=== PATIENT | female | born 1945 | race Caucasian/White ===

== ENCOUNTER 2018-09-11 20:28 | Inpatient (IN) ==
[2018-09-12] MEDS ORDERED: NITROGLYCERIN SL 0.4 MG/TAB TAB SL PRN (01:30)
[2018-09-12] MEDS ORDERED: POLYETHYLENE (MIRALAX) 17 GM PACK PO PRN (01:30)
[2018-09-12] MEDS ORDERED: ALUMINUM/MAGNESIUM SUSP 30 ML UDC PO PRN (01:30)
[2018-09-12] MEDS ORDERED: ONDANSETRON INJ 2 MG/ML 2 ML VIAL IV PRN (01:30)
[2018-09-12] MEDS ORDERED: ACETAMINOPHEN 325 MG TAB PO PRN (01:30)
[2018-09-12] MEDS ORDERED: MAGNESIUM HYDROXIDE SUSP 30 ML UDC PO PRN (01:30)
[2018-09-12] MEDS ORDERED: NSS + 20MEQ KCL 20 MEQ/1,000 ML BAG IV SCH (01:45)
[2018-09-12] MEDS ORDERED: PNEUMOCOCCAL ADMINISTRATION CHARGE ONE (01:45)
[2018-09-12] MEDS ORDERED: PNEUMOCOCCAL POLYSACCHARIDES 25 MCG/0.5 ML VIAL/SYR IM ONE (01:45)
[2018-09-12 01:57] LABS: Basophils # (auto) 0.01 K/uL (0-0.2); Basophils % (auto) 0.3 %; Eosinophils # (auto) 0.07 K/uL (0-0.5); Eosinophils % (auto) 1.8 %; Hematocrit (blood only) 40.8 % (37-47); Hemoglobin 14.5 g/dL (12.0-16.0); Immature Granulocytes # (auto) 0.01 K/uL (0.00-0.02); Immature Granulocytes % (auto) 0.3 %; Lymphocytes % (auto) 33.5 %; Mean Corpuscular Hgb Conc 35.5 g/dL (32-36); Mean Corpuscular Volume 85.9 fL (80-100); Mean Platelet Volume 9.8 fL (7.4-10.4); Monocytes % (auto) 20.6 %; Neutrophils # (auto) 1.69 K/uL (1.4-6.5); Neutrophils % (auto) 43.5 %; Platelet Count 161 K/uL (130-400); RDW Standard Deviation 41.4 fL (36.4-46.3); Red Blood Count 4.75 M/uL (4.2-5.4); White Blood Count 3.88 K/uL (4.8-10.8)
[2018-09-12 02:14] LABS: Albumin Level 3.3 gm/dl (3.4-5.0); BUN Creatinine Ratio 18.2 (10-20); Creatinine Clr Calc Pharmacy 55.3 ml/min; Est GFR (African American) 55.8; Est GFR (Non-African American) 48.2; Magnesium 2.2 mg/dl (1.8-2.4); Potassium 3.3 mmol/L (3.5-5.1)
[2018-09-12 02:19] LABS: Bilirubin,Total 0.3 mg/dl (0.2-1); Globulin 3.4 gm/dl (2.5-4.0); Total Protein 6.7 gm/dl (6.4-8.2); Troponin I 0.017 ng/ml (0-0.045)
--- NOTE | 2018-09-12 03:36 | History & Physical Report ---
Date of Service September 12, 2018 Assessment & Plan (1) Dysrhythmia: The patient will be admitted to telemetry for serial cardiac enzymes, serial EKG's, cardiac rhythm monitoring and a 2-D echocardiogram with Dopplers. Patient was noted to be in atrial fibrillation with controlled rate at [facility] ED. Review of EKG from there suggests junctional tachycardia. Early rhythm monitoring at [facility] suggests normal sinus rhythm with intermittent PACs and possible wandering pacemaker. Consult cardiology for their opinion. Do not think patient needs to be anticoagulated at this time. Present on Admission?: Yes (2) Influenza A: Given first dose of Tamiflu 30 mg p.o. in the ED at [facility]. Continue Tamiflu 30 mg p.o. twice daily for full 5-day course. Present on Admission?: Yes (3) Hypokalemia: Potassium 3.3 upon admission, likely contributing to the variability in her heart rate and rhythm. Place on NSS + KCl 20 mEq at 100 mils per hour. Repeat laboratories serially in a.m. Present on Admission?: Yes (4) Hypothyroidism: Continue levothyroxine 25 mcg p.o. daily. Check a TSH Present on Admission?: Yes (5) Morbid obesity with BMI of 50.0-59.9, adult: Present on Admission?: Yes (6) Venous insufficiency of both lower extremities: Hold Lasix. Rehydrate with IV fluids as noted above. Present on Admission?: Yes History of Present Illness Chief Complaint: The patient presented to the emergency department at [facility] with complaint of 3 days of generalized myalgias, coughing, generalized weakness and dizziness. Primary Care Provider: NO PCP The patient is a 72-year-old female with a past medical history of hypothyroidism, sepsis, arthritis, carpal tunnel syndrome, intermittent lower extremity edema, who presented to the emergency department at [facility], had testing done including influenza testing which was positive for influenza A, and was found to be in new onset atrial fibrillation with controlled rate. She was transferred to [facility] for further assessment and treatment of the atrial fibrillation. She was given Tamiflu 30 mg x1 dose in the ED there. Allergies Allergy/AdvReac Type Severity Reaction Status Date / Time cephalexin [From Keflex] Allergy Unknown Verified 09/12/18 01:16 ciprofloxacin [From Cipro] Allergy Unknown Verified 09/12/18 01:16 [id number]-[id number]-Xaq Reductase Allergy Unknown Verified 09/12/18 01:16 Inhibitor Home Medications Home Medications Medication Instructions Recorded Confirmed Type levothyroxine 25 mcg PO DAILY 09/12/18 09/12/18 History Past Med/Surg History Social History Preferred Language: Mohawk Communication Ability: Effective Beliefs That Will Affect Care: None Current Living Situation: Family Feels Safe at Home: Yes Safety Concerns: Feels Safe At This Time Smoking Status: Former smoker Hx Alcohol Use: No Hx Substance Use: No Review of Systems The patient denies chest pain, palpitations, lower extremity swelling, sore throat, chills, vomiting, diarrhea , constipation, abdominal pain, pelvic pain, blood in urine or stool, dysuria, urinary frequency or urgency, memory loss, loss of consciousness, rash, abnormal bruising or bleeding, imbalance, focal weakness, numbness or tingling in arms or legs, or night sweats. The review of systems is otherwise negative other than for that already noted above, and at least 10 systems have been reviewed. Physical Exam Vital Signs (Past 24 Hours): Last Vital Signs Temp 36.8 C 09/12/18 03:19 Pulse 64 09/12/18 03:19 Resp 20 09/12/18 03:19 BP 99/62 L 09/12/18 03:19 Pulse Ox 94 09/12/18 03:19 Physical Exam: The patient is awake, alert and oriented 3, normocephalic and atraumatic, lying in bed and in no acute distress. HEENT--PERRL, EOMI, mucous membranes and oropharynx normal. Neck--supple. No JVD. No bruits. Thyroid normal, trachea midline, no adenopathy. Heart--normal S1 and S2. No murmurs, rubs or gallops. Lungs--a few coarse breath sounds with wheezes bilaterally. No respiratory distress, no accessory muscle use. Abdomen--normal bowel sounds and soft. Nontender. Nondistended. Morbidly obese Extremities--no cyanosis or clubbing. No edema. There are good distal pulses b/l. Dermatologic--normal skin turgor, normal color, no abnormal lymph nodes, no rash. Neurologic--cranial nerves II through XII grossly intact. Rheumatologic--normal range of motion. Psychiatric--normal affect. Results & Data Laboratory Results Laboratory Results WBC 3.88 K/uL (4.8-10.8) L 09/12/18 01:47 RBC 4.75 M/uL (4.2-5.4) 09/12/18 01:47 Hgb 14.5 g/dL (12.0-16.0) 09/12/18 01:47 Hct 40.8 % (37-47) 09/12/18 01:47 MCV 85.9 fL (80-100) 09/12/18 01:47 MCH 30.5 pg (25-34) 09/12/18 01:47 MCHC 35.5 g/dL (32-36) 09/12/18 01:47 RDW Std Deviation 41.4 fL (36.4-46.3) 09/12/18 01:47 RDW Coeff of Dany 13.0 % (11.5-14.5) 09/12/18 01:47 Plt Count 161 K/uL (130-400) 09/12/18 01:47 MPV 9.8 fL (7.4-10.4) 09/12/18 01:47 Immature Gran % (Auto) 0.3 % 09/12/18 01:47 Neut % (Auto) 43.5 % 09/12/18 01:47 Lymph % (Auto) 33.5 % 09/12/18 01:47 Citrus % (Auto) 20.6 % 09/12/18 01:47 Eos % (Auto) 1.8 % 09/12/18 01:47 Baso % (Auto) 0.3 % 09/12/18 01:47 Immature Gran # (Auto) 0.01 K/uL (0.00-0.02) 09/12/18 01:47 Neut # (Auto) 1.69 K/uL (1.4-6.5) 09/12/18 01:47 Lymph # (Auto) 1.30 K/uL (1.2-3.4) 09/12/18 01:47 Citrus # (Auto) 0.80 K/uL (0.11-0.59) H 09/12/18 01:47 Eos # (Auto) 0.07 K/uL (0-0.5) 09/12/18 01:47 Baso # (Auto) 0.01 K/uL (0-0.2) 09/12/18 01:47 Sodium 137 mmol/L (136-145) 09/12/18 01:47 Potassium 3.3 mmol/L (3.5-5.1) L 09/12/18 01:47 Chloride 103 mmol/L (98-107) 09/12/18 01:47 Carbon Dioxide 25 mmol/L (21-32) 09/12/18 01:47 Anion Gap 9.0 (3-11) 09/12/18 01:47 BUN 21 mg/dl (7-18) H 09/12/18 01:47 Creatinine 1.13 mg/dl (0.6-1.2) 09/12/18 01:47 Est Cr Clr Drug Dosing 55.3 ml/min 09/12/18 01:47 Est GFR ( Amer) 55.8 09/12/18 01:47 Est GFR (Non-Af Amer) 48.2 09/12/18 01:47 BUN/Creatinine Ratio 18.2 (10-20) 09/12/18 01:47 Glucose 98 mg/dl (70-99) 09/12/18 01:47 Calcium 8.0 mg/dl (8.5-10.1) L 09/12/18 01:47 Magnesium 2.2 mg/dl (1.8-2.4) 09/12/18 01:47 Total Bilirubin 0.3 mg/dl (0.2-1) 09/12/18 01:47 AST 36 U/L (15-37) 09/12/18 01:47 ALT 38 U/L (12-78) 09/12/18 01:47 Alkaline Phosphatase 43 U/L (45-117) L 09/12/18 01:47 Troponin I 0.017 ng/ml (0-0.045) 09/12/18 01:47 Total Protein 6.7 gm/dl (6.4-8.2) 09/12/18 01:47 Albumin 3.3 gm/dl (3.4-5.0) L 09/12/18 01:47 Globulin 3.4 gm/dl (2.5-4.0) 09/12/18 01:47 Albumin/Globulin Ratio 1.0 (0.9-2) 09/12/18 01:47 Hepatitis C Ab Screen Neg (Neg) 09/12/18 01:46 Code Status & VTE Plan Code Status Full code VTE Prophylaxis Plan VTE Prophylaxis will be ordered: Yes
[2018-09-12] MEDS ORDERED: KETOROLAC TROMETHAMINE 15 MG/ML VIAL IV PRN (04:01)
[2018-09-12] MEDS ORDERED: ACETAMINOPHEN SOL 650 MG/20.3 ML UDC PO PRN (04:02)
[2018-09-12] MEDS ORDERED: ACETAMINOPHEN 325 MG TAB PO STA (04:03)
[2018-09-12] MEDS ORDERED: KETOROLAC TROMETHAMINE 15 MG/ML VIAL IV ONE (04:03)
[2018-09-12] MEDS: LEVALBUTEROL HCL 0.63 MG/3 ML NEB NEB SCH ×3 (05:28→11:13)
--- NOTE | 2018-09-12 06:35 | XRay Report ---
XR chest 1V portable HISTORY: 72 years-old Female Dyspnea, wheezing, cough acute shortness of breath COMPARISON: None available TECHNIQUE: Portable AP view of the chest FINDINGS: The cardiomediastinal and hilar silhouettes are within normal limits. There is no pneumothorax, pleur al effusion, overt pulmonary edema or focal airspace consolidation identified. Ill-defined opacities of the right lung base are likely secondary to summation density artifact. Degenerative changes of th e shoulders and spine. IMPRESSION: No acute process. The above report was generated using voice recognition software. It may contain grammatical, syntax o r spelling errors. Electronically signed by: Suhas Rapp M.D. 09/12/2018 6:34 AM
--- NOTE | 2018-09-12 07:05 | Family Medicine Progress Note ---
Date of Service September 12, 2018 Assessment & Plan (1) Influenza A: Subjective Pt states that she still feels tired, with muscle pains. Denies N/V but has had diarrhea consistently. Denies chest pain, palpitations, but states she has some mild SOB. Some light sensitivity. Did not get her flu shot and has NOT been taking her lasix at home recently. Review of Systems All systems reviewed & are unremarkable except as noted in HPI & below Physical Exam Vital Signs (Past 24 Hours): Last Vital Signs Temp 36.7 C 09/12/18 06:48 Pulse 70 09/12/18 06:48 Resp 19 09/12/18 06:48 BP 106/78 09/12/18 06:48 Pulse Ox 94 09/12/18 06:48 General: Alert, oriented. HEENT: NC/AT, EOMI Chest: Nontender to palpation. CV: RRR, Normal s1, s2. No murmurs appreciated Resp: Breath sounds coarse bilaterally Abdomen: Soft, nontender. No guarding. No organomegaly appreciated. Extremities: 1+ edema in legs bilaterally Results & Data Laboratory Results Laboratory Results - last 24 hr 09/12/18 09/12/18 09/12/18 01:46 01:47 01:47 WBC 3.88 L RBC 4.75 Hgb 14.5 Hct 40.8 MCV 85.9 MCH 30.5 MCHC 35.5 RDW Std Deviation 41.4 RDW Coeff of Dany 13.0 Plt Count 161 MPV 9.8 Immature Gran % (Auto) 0.3 Neut % (Auto) 43.5 Lymph % (Auto) 33.5 [place] % (Auto) 20.6 Eos % (Auto) 1.8 Baso % (Auto) 0.3 Immature Gran # (Auto) 0.01 Neut # (Auto) 1.69 Lymph # (Auto) 1.30 [place] # (Auto) 0.80 H Eos # (Auto) 0.07 Baso # (Auto) 0.01 Sodium 137 Potassium 3.3 L Chloride 103 Carbon Dioxide 25 Anion Gap 9.0 BUN 21 H Creatinine 1.13 Est Cr Clr Drug Dosing 55.3 Est GFR ( Amer) 55.8 Est GFR (Non-Af Amer) 48.2 BUN/Creatinine Ratio 18.2 Glucose 98 Calcium 8.0 L Magnesium 2.2 Total Bilirubin 0.3 AST 36 ALT 38 Alkaline Phosphatase 43 L Troponin I 0.017 Total Protein 6.7 Albumin 3.3 L Globulin 3.4 Albumin/Globulin Ratio 1.0 TSH Hepatitis C Ab Screen Neg 09/12/18 09:11 WBC RBC Hgb Hct MCV MCH MCHC RDW Std Deviation RDW Coeff of Dany Plt Count MPV Immature Gran % (Auto) Neut % (Auto) Lymph % (Auto) [place] % (Auto) Eos % (Auto) Baso % (Auto) Immature Gran # (Auto) Neut # (Auto) Lymph # (Auto) [place] # (Auto) Eos # (Auto) Baso # (Auto) Sodium 138 Potassium 3.0 L Chloride 106 Carbon Dioxide 23 Anion Gap 9.0 BUN 22 H Creatinine 1.08 Est Cr Clr Drug Dosing 57.9 Est GFR ( Amer) 59.0 Est GFR (Non-Af Amer) 50.9 BUN/Creatinine Ratio 20.1 H Glucose 117 H Calcium 8.1 L Magnesium Total Bilirubin AST ALT Alkaline Phosphatase Troponin I Total Protein Albumin Globulin Albumin/Globulin Ratio TSH 1.860 Hepatitis C Ab Screen Medications Administered Home Medications levothyroxine 25 mcg PO DAILY 09/12/18 [History Confirmed 09/12/18] Active Medications Acetaminophen (Tylenol) 650 mg PO Q4H PRN PRN Reason: Pain or Fever Stop: 10/12/18 01:29 Acetaminophen (Tylenol) 650 mg PO Q6 PRN PRN Reason: Pain Stop: 10/12/18 04:01 Al Hydrox/Mg Hydrox/Simethicone (Maalox) 15 ml PO Q4H PRN PRN Reason: Dyspepsia Stop: 10/12/18 01:29 Benzonatate (Tessalon Perle) 100 mg PO TID [facility] Stop: 10/12/18 13:59 Last Admin: 09/12/18 12:16 Dose: 100 mg Documented by: Ketorolac Tromethamine (Toradol) 15 mg IV Q6H PRN PRN Reason: Pain Stop: 09/17/18 04:00 Lactobacillus Acidophilus (Floranex) 4 tab PO QIDM [facility] Stop: 10/12/18 11:59 Last Admin: 09/12/18 12:38 Dose: Not Given Documented by: Levalbuterol HCl (Xopenex 0.63 Mg/3 Ml Neb) 0.63 mg NEB Q4R [facility] Stop: 10/12/18 04:14 Last Admin: 09/12/18 11:13 Dose: 0.63 mg Documented by: Levothyroxine Sodium (Synthroid) 25 mcg PO DAILYBB [facility] Stop: 10/13/18 06:29 Magnesium Hydroxide (Milk Of Magnesia) 30 ml PO Q12H PRN PRN Reason: Constipation Stop: 10/12/18 01:29 Metoprolol Tartrate (Lopressor) 12.5 mg PO BID [facility] Stop: 10/12/18 09:59 Last Admin: 09/12/18 10:43 Dose: 12.5 mg Documented by: Nitroglycerin (Nitrostat) 0.4 mg SL UD PRN PRN Reason: Chest Pain Stop: 10/12/18 01:29 Ondansetron HCl (Zofran) 4 mg IV Q6H PRN PRN Reason: Nausea Stop: 10/12/18 01:29 Oseltamivir Phosphate (Tamiflu) 30 mg PO BID [facility]; Protocol Stop: 09/17/18 08:59 Last Admin: 09/12/18 07:58 Dose: 30 mg Documented by: Polyethylene Glycol (Miralax Powder Packet) 17 gm PO DAILY PRN PRN Reason: Constipation Stop: 10/12/18 01:29
[2018-09-12] MEDS ORDERED: OSELTAMIVIR PHOSPHATE SUSP 30 MG/5 ML UDP PO SCH (09:00)
--- NOTE | 2018-09-12 09:39 | Cardiology Consultation ---
Date of Consultation September 12, 2018 Assessment & Plan (1) Atrial tachycardia: Atrial tachycardia noted on telemetry. She is having recurrent episodes of nonsustained atrial tachycardia. This may or may not be the cause of her palpitations that she has noted as an outpatient. She is asymptomatic here in this regard. Given the fact that she is experiencing many recurrent episodes, would recommend low-dose metoprolol tartrate if no contraindication. The ECG done at her presenting emergency department ([place]) is not available for review at this time. Another copy was requested as there was concern there for atrial fibrillation. Thus far, there is no convincing evidence for atrial fibrillation during this hospitalization. (2) Ectopic atrial rhythm: This was noted on telemetry. No specific therapy warranted. (3) Palpitations: It is not certain if her palpitations correlate with atrial tachycardia or any other arrhythmia as she has been asymptomatic in this regard during this hospitalization. Continue telemetry. (4) Dyspnea on exertion: Likely secondary to influenza. She appears euvolemic. As per primary service. (5) Hypokalemia: Replete as appropriate. Defer to primary service. (6) Influenza A: As per primary service. (7) Murmur: She states that she was told the past that she has a murmur. Echocardiogram ordered given atrial arrhythmia and will also investigate her murmur. Do not suspect any severe valvular issue based on exam, but echo findings are pending. Disposition: Plan of care communicated with primary hospitalist service. If patient would like to follow-up with Cardiology as an outpatient, she prefers to follow-up in the [place] office, which would be with Dr. Crane. Thank you for allowing me to participate in the care of your patient. Please call for any other questions or concerns. Sincerely, Keanu Perez M.D. History of Present Illness Reason for Consultation: Arrhythmia Requesting Physician: Dr. Brito Attending Physician: Nena Dunn MD History of Present Illness Ms. Valencia is a very pleasant 72-year-old female with a history significant for hypothyroidism and dyslipidemia (intolerant to statin therapy) who was transferred from [facility] for influenza A and arrhythmia, possibly atrial fibrillation. She presented to her local emergency department with myalgias, dry cough, weakness, dizziness, nausea, and diaphoresis. She was found to have influenza A and through report, there was apparently arrhythmia, concerning for atrial fibrillation. It was reviewed by Dr. Brito who felt that the ECG done at [place] was more consistent with junctional tachycardia. Unfortunately, the ECG done at [facility] is not presently with her chart nor has it been scanned into the electronic medical record. This was discussed with the community living coach and we have requested another copy to be sent to our facility for review. She denies any palpitations while hospitalized but admits that she does have rare palpitations. She is unable to recall the duration of her symptoms but states that palpitations tend to occur if she gets upset, admitting that she has a tendency to worry about things. A couple weeks ago she felt a funny feeling in her neck, such as her heart beating. She denies chest pain, syncope, stroke or stroke-like symptoms. She has had edema in the past and was on diuretic therapy but with a commitment to maintain a low-sodium diet, she has not required any diuretic therapy and states that her edema has been controlled. She presented with dyspnea with exertion to go along with her dry cough. She admits that her dyspnea has improved following breathing treatment therapy. She feels much better since presentation overall. Her mother recently was ill with a cough is well. Although she does not have a documented fever at home, she felt febrile prior to reporting to the emergency department. She denies melena, hematochezia, hematuria, or other bleeding. She denies orthopnea or angina. She admits that she has had recurrent cellulitis in the past and at 1 point had sepsis from her infection. She had significant myalgias on statin therapy. Review of systems: As above. Review of systems otherwise negative/unremarkable. Family history: Father had CAD status post CABG near the age of 60. Social history: She quit smoking over 30 years ago. No alcohol or drugs. She is a since 2018. Her mother now lives with her. She has 2 sons and 1 daughter. Her daughter is an x-ray tech at the surgery center with [employer]. She has grandchildren. She is currently alone in her hospital room. Allergies Allergy/AdvReac Type Severity Reaction Status Date / Time cephalexin [From Keflex] Allergy Unknown Verified 09/12/18 01:16 ciprofloxacin [From Cipro] Allergy Unknown Verified 09/12/18 01:16 Dhuwpqz-[id number]-Vuh Reductase Allergy Unknown Verified 09/12/18 01:16 Inhibitor Home Medications Home Medications Medication Instructions Recorded Confirmed Type levothyroxine 25 mcg PO DAILY 09/12/18 09/12/18 History Patient History Medical History Dyslipidemia Hypothyroidism Social History Preferred Language: Lithuanian Communication Ability: Effective Beliefs That Will Affect Care: None Current Living Situation: Family Feels Safe at Home: Yes Safety Concerns: Feels Safe At This Time Smoking Status: Former smoker Hx Alcohol Use: No Hx Substance Use: No Physical Exam Vital Signs (Past 24 Hours): Last Vital Signs Temp 36.7 C 09/12/18 06:48 Pulse 69 09/12/18 07:06 Resp 18 09/12/18 07:06 BP 106/78 09/12/18 06:48 Pulse Ox 92 09/12/18 07:06 Physical Exam: Gen.: No acute distress. Alert and oriented. HEENT: Anicteric sclera. Neck: No JVD. No bruits. Normal carotid upstrokes bilaterally. Cardiac: PMI was nondisplaced. No ventricular heave. Regular. Normal S1-S2. 2/6 early peaking systolic ejection murmur. No rubs, or gallops. Pulmonary: Bilateral expiratory wheezing. Abdomen: Obese. Soft, nontender, nondistended, with normoactive bowel sounds. No bruits noted. Extremities: 2+ radial pulses bilaterally. 2+ dorsalis pedis pulses bilaterally. No edema or cyanosis. No palpable cords. Psychiatric: Affect appears appropriate. Results & Data Laboratory Results Laboratory Results - last 24 hr 09/12/18 09/12/18 09/12/18 01:46 01:47 01:47 WBC 3.88 L RBC 4.75 Hgb 14.5 Hct 40.8 MCV 85.9 MCH 30.5 MCHC 35.5 RDW Std Deviation 41.4 RDW Coeff of Dany 13.0 Plt Count 161 MPV 9.8 Immature Gran % (Auto) 0.3 Neut % (Auto) 43.5 Lymph % (Auto) 33.5 [place]duffie % (Auto) 20.6 Eos % (Auto) 1.8 Baso % (Auto) 0.3 Immature Gran # (Auto) 0.01 Neut # (Auto) 1.69 Lymph # (Auto) 1.30 [place]ffie # (Auto) 0.80 H Eos # (Auto) 0.07 Baso # (Auto) 0.01 Sodium 137 Potassium 3.3 L Chloride 103 Carbon Dioxide 25 Anion Gap 9.0 BUN 21 H Creatinine 1.13 Est Cr Clr Drug Dosing 55.3 Est GFR ( Amer) 55.8 Est GFR (Non-Af Amer) 48.2 BUN/Creatinine Ratio 18.2 Glucose 98 Calcium 8.0 L Magnesium 2.2 Total Bilirubin 0.3 AST 36 ALT 38 Alkaline Phosphatase 43 L Troponin I 0.017 Total Protein 6.7 Albumin 3.3 L Globulin 3.4 Albumin/Globulin Ratio 1.0 Hepatitis C Ab Screen Neg Diagnostic Findings Telemetry personally reviewed: Sinus rhythm with intermittent ectopic atrial rhythm and nonsustained atrial tachycardia. ECGs personally reviewed: ECG 09/12/2018 at 1:34 a.m.: Sinus rhythm with short atrial runs. 69 bpm. ECG 09/12/2018 at 1:34 a.m.: Sinus rhythm with short run of atrial tachycardia. 71 bpm. Medications Administered Current Inpatient Medications Acetaminophen (Tylenol) 650 mg PO Q4H PRN PRN Reason: Pain or Fever Stop: 10/12/18 01:29 Acetaminophen (Tylenol) 650 mg PO Q6 PRN PRN Reason: Pain Stop: 10/12/18 04:01 Al Hydrox/Mg Hydrox/Simethicone (Maalox) 15 ml PO Q4H PRN PRN Reason: Dyspepsia Stop: 10/12/18 01:29 Potassium Chloride/Sodium Chloride (Normal Saline W/20 Meq Kcl) 20 meq in 1,000 mls @ 100 mls/hr IV .Q10H [facility] Stop: 10/12/18 01:44 Last Admin: 09/12/18 02:02 Dose: 100 mls/hr Documented by: Ketorolac Tromethamine (Toradol) 15 mg IV Q6H PRN PRN Reason: Pain Stop: 09/17/18 04:00 Levalbuterol HCl (Xopenex 0.63 Mg/3 Ml Neb) 0.63 mg NEB Q4R [facility] Stop: 10/12/18 04:14 Last Admin: 09/12/18 07:06 Dose: 0.63 mg Documented by: Magnesium Hydroxide (Milk Of Magnesia) 30 ml PO Q12H PRN PRN Reason: Constipation Stop: 10/12/18 01:29 Nitroglycerin (Nitrostat) 0.4 mg SL UD PRN PRN Reason: Chest Pain Stop: 10/12/18 01:29 Ondansetron HCl (Zofran) 4 mg IV Q6H PRN PRN Reason: Nausea Stop: 10/12/18 01:29 Oseltamivir Phosphate (Tamiflu) 30 mg PO BID [facility]; Protocol Stop: 09/17/18 08:59 Last Admin: 09/12/18 07:58 Dose: 30 mg Documented by: Polyethylene Glycol (Miralax Powder Packet) 17 gm PO DAILY PRN PRN Reason: Constipation Stop: 10/12/18 01:29
[2018-09-12 09:43] LABS: BUN Creatinine Ratio 20.1 (10-20); Calcium 8.1 mg/dl (8.5-10.1); Creatinine Clr Calc Pharmacy 57.9 ml/min; Est GFR (Non-African American) 50.9
[2018-09-12] MEDS ORDERED: METOPROLOL TARTRATE 25 MG TAB PO SCH (10:00)
[2018-09-12] MEDS ORDERED: POTASSIUM CHLORIDE 20 MEQ TABCR PO STA (10:11)
[2018-09-12] MEDS ORDERED: PERFLUTREN LIPID MICROSPHERE (DEFINITY) IV ONE (11:05)
[2018-09-12] MEDS ORDERED: LACTOBACILLUS ACIDOPHILUS (FLORANEX) TAB PO SCH (12:00)
[2018-09-12] MEDS ORDERED: BENZONATATE 100 MG CAPSULE PO SCH (14:00)
--- NOTE | 2018-09-12 14:21 | Discharge Summary ---
Date of Service September 12, 2018 Admission HPI Per Admitting Provider The patient is a 72-year-old female with a past medical history of hypothyroidism, sepsis, arthritis, carpal tunnel syndrome, intermittent lower extremity edema, who presented to the emergency department at [facility], had testing done including influenza testing which was positive for influenza A, and was found to be in new onset atrial fibrillation with controlled rate. She was transferred to [facility] for further assessment and treatment of the atrial fibrillation. She was given Tamiflu 30 mg x1 dose in the ED there. Admission Exam Per Admitting Provider The patient is awake, alert and oriented 3, normocephalic and atraumatic, lying in bed and in no acute distress. HEENT--PERRL, EOMI, mucous membranes and oropharynx normal. Neck--supple. No JVD. No bruits. Thyroid normal, trachea midline, no adenopathy. Heart--normal S1 and S2. No murmurs, rubs or gallops. Lungs--a few coarse breath sounds with wheezes bilaterally. No respiratory distress, no accessory muscle use. Abdomen--normal bowel sounds and soft. Nontender. Nondistended. Morbidly obese Extremities--no cyanosis or clubbing. No edema. There are good distal pulses b/l. Dermatologic--normal skin turgor, normal color, no abnormal lymph nodes, no rash. Neurologic--cranial nerves II through XII grossly intact. Rheumatologic--normal range of motion. Psychiatric--normal affect. Principal Diagnosis Influenza, Atrial Tachycardia Discharge Exam General: Alert, oriented. HEENT: NC/AT, EOMI Chest: Nontender to palpation. CV: RRR, Normal s1, s2. No murmurs appreciated Resp: Breath sounds coarse bilaterally Abdomen: Soft, nontender. No guarding. No organomegaly appreciated. Extremities: 1+ edema in legs bilaterally Discharge Data Allergies Allergy/AdvReac Type Severity Reaction Status Date / Time cephalexin [From Keflex] Allergy Unknown Verified 09/12/18 01:16 ciprofloxacin [From Cipro] Allergy Unknown Verified 09/12/18 01:16 Yhedzyi-Ema-Mro Reductase Allergy Unknown Verified 09/12/18 01:16 Inhibitor Consultations 09/12/18 01:30 Consult Cardiology Routine 09/12/18 01:33 Consult Case Management - Discharge Planning Routine 09/12/18 08:59 HIM [Consult Health Information Management] Stat 09/12/18 13:58 Consult Case Management - Discharge Planning Routine Hospital Course (1) Influenza A: Pt is 72yo transfer from [facility] for management of suspected atrial fibrillation in the setting of a confirmed Influenza infection. Pt converted to sinus tachycardia overnight and per Cardiology at [facility], had runs of atrial tachycardia rather than atrial fibrillation. On discharge states she still has body aches but denies chest pain, palpitations or SOB. Paroxysmal Atrial Tachycardia -Started on low dose metoprolol tartrate at 12.5mg BID -Advised to followup with Dr. Jay Jay Crane of [facility] at the [place] office. -Echo showed EF 65-70%, mild concentric LVH, sclerotic aortic valve without significant stenosis, and severe mitral annular calcifications. -Last EKG before discharge sinus rhythm with marked sinus arrhythmia, read as atrial tachycardia by Cardiology. qtc 450 -Chest XR showed no acute process, troponins within normal limits. -No need for anticoagulation as NOT atrial fibrillation. Influenza infection -Confirmed at [facility] -Pt started on Tamiflu 30mg PO BID in hospital. Discharged home with 4 days worth for a total of 5 days. -Discharged with benzonatate 100mg TID to help with cough -Advised to get flu shots in future -Received probiotics in hospital for associated diarrhea, advised use of yogurt at home. Hypokalemia -3.3 on admission -Likely due to pt's diarrhea. Pt denies use of Lasix at home for LE edema, which could also be contributory cause. -Received IV NSS and Kcl 20mEq at 100mls per hr IN ADDITION to PO 40Meq. -Advised close PCP followup for continued monitoring. -Advised to NOT use Lasix at home until she gets in to see PCP. Hypothyroidism -Continue home Synthroid -TSH within normal limits Obesity -Consider sleep study in setting of Paroxysmal atrial tachycardia. Total Time Total Time Spent Total Time Spent (In Minutes): 60 Discharge Plan Discharge Items Patient Disposition: Home - Self-Care Reason For Visit: INFLUENZA A, NEW ONSET AFIB Discharge Diagnosis: Influenza A, atrial tachycardia Discharge Goals: Decrease discomfort, Improve disease control and Improve function Activity: Per 'Additional Instructions' section Non-emergency contact: Primary Care Provider Call non-emergency contact if: your symptoms worsen Follow-up/Referrals: PCP,NO [Physician] - Diet: Regular Addtl Provider Instructions: You were admitted to the hospital because you had the flu and your heart was beating irregularly. Influenza -You are being discharged with 4 more days worth of Tamiflu to help shorten the duration of your current flu infection. Please take the medication as directed. -Your symptoms will likely continue for another week as the virus runs its course. -Continue to take tylenol/ibuprofen for the muscle aches and the benzonatate you are being discharged with to help with your cough. -Please try to take some yogurt at home to help with the diarrhea that is likely related to your flu infection. -Please followup with your primary care physician as soon as possible, likely in the next few days. -Please try to get the flu shot as that might help prevent flu infections in the future. Atrial Tachycardia -Your heart was beating irregularly and this was likely due to what is called atrial tachycardia. -You were started on a low dose medication called Metoprolol. You are being discharged with a prescription for this medication. Please continue to take it as directed for your heart. -Please followup with Dr. Pranay Crane, a heart doctor for further evaluation of your heart in the [place] office. -Please followup with your primary care provider as well to see if a SLEEP STUDY might be beneficial to you as well. Hypothyroidism -Continue taking your thyroid medication, Synthroid as you did at home. -Please followup with your primary care provider. Hypokalemia -Your potassium levels were low in the hospital. We replaced your potassium. -Please hold off on taking your Lasix at home as you've been doing until you get into see your primary care provider and they can reassess you and your need for it. -We think your low potassium was due to your diarrhea but if you were taking the Lasix that could have contributed to it as well. -Please followup with your primary care provider SOON POSSIBLE as your potassium levels can affect how your heart works. Prescriptions: New oseltamivir [Tamiflu] 30 mg capsule 30 mg PO BID 4 Days Qty: 8 RF: 0 metoprolol tartrate 25 mg tablet 12.5 mg PO BID 30 Days Qty: 30 RF: 0 benzonatate 100 mg capsule 100 mg PO TID 5 Days Qty: 15 RF: 0 Continued levothyroxine 25 mcg Tablet 25 mcg PO DAILY RF: 0 Stand-Alone Forms: My [facility] [employer]/Other Patient Handouts: ED Flu Discharge Orders: Discharge Order (Routine); Ordered 09/12/18 Ordered By: Regi Mae Admission Data Admit Date/Time: 09/12/18 00:30 Attending Provider: Nena Dunn Admit Provider: Juan Brito Primary Care Provider: Dirk Abernathy Other Providers: Pernell Perez ; Juan Brito Service: Telemetry Other Interventions: Discharge Summary Assessment (RN) Last Done: 09/12/18 14:35 DC Date/Time DO NOT enter until pt leaves facility: 09/12/18 15:50 Supervising Physician Co-Signing Physician Notes Resident Physician Supervision Note: I independently interviewed and examined the patient and verified the huerta history and physical, reviewed labs and image studies, discussed the case with the resident Dr. Mae and agree with the findings and care plan. Time spent in discharge 35 min Resident Activity Tracking Resident Involvement: Resident Care Provided Care Provided: Adult Hospital Medicine
[2018-09-13] MEDS ORDERED: LEVOTHYROXINE SODIUM 25 MCG TABLET PO SCH (06:30)
== END 2018-09-12 15:50 | disposition home or self-care (01) | DRG 866 ==
LOC: SUATTDRO 09-12 00:30 → 2S 09-12 00:30